=== PATIENT | male | born 1990 | race Two or more races ===

== ENCOUNTER 2021-04-22 19:44 | Emergency (ER) | payer SELFPAY | END 2021-04-22 19:55 | disposition left against medical advice (07) | LOC: ER 19:44 | DX: F10.20 Alcohol dependence, uncomplicated (principal); Z53.21 Procedure and treatment not carried out due to patient leaving prior to being seen by health care provider; Y90.9 Presence of alcohol in blood, level not specified | CPT/HCPCS: 99281 ==